=== PATIENT | female | born 1985 | race Hispanic/Latino ===

== ENCOUNTER 2016-08-11 12:53 | Emergency (ER) | payer OTHER ==
[~2016-08-11] VITALS: Ht 162.6 cm; Wt 65.8 kg
[~2016-08-11 12:53] MED LIST: AMOXICILLIN500 MG PO; DEPAKOTE500 MG PO; FERRALET 90 TA1 EACH PO; FLAGYL500 MG PO; HYDROXYZINE PAM50 MG PO; LOPERAMIDE2 M2 PO; OMEPRAZOLE20 M2 PO; PRENATAL1 TA2 PO; TYLENOL EXTRA500 M2 PO; ZOFRAN ODT4 M1 PO; ZOFRAN ODT4 MG PO; ZOFRAN4 M2 PO
--- NOTE | 2016-08-11 13:21 | ED GI/GU/ABDOMINAL COMPLAINT ---
History of Present Illness General Chief Complaint: Abdominal Pain/Flank Pain Stated Complaint: ABD PAIN/PRESSURE SINCE INTERCOURSE Source: patient, old records Exam Limitations: no limitations Vital Signs & Intake/Output Vital Signs & Intake/Output Vital Signs Date Time Temp Pulse Resp B/P B/P Pulse O2 O2 Flow FiO2 Mean Ox Delivery Rate 08/11 1510 97.8 66 18 156/99 100 08/11 1302 97.9 93 18 143/87 100 Room Air Allergies Coded Allergies: codeine (HIVES 07/21/15) Reconcile Medications Ibuprofen 600 MG TABLET 1 TAB PO Q6-PRN PRN PAIN (Reported) Ibuprofen 800 MG TABLET 1 TAB PO Q8H PRN pain Pantoprazole Sodium 40 MG TABLET.DR 1 TAB PO DAILY GI (Reported) Triage Note: PT TO ED FOR LATERAL ABD PAIN, PELVIC PAIN, ABD SKIN PAIN, RECTAL PAIN AND CONSTIPATION AND PAIN AFTER INTERCOURSE. PT ALSO C/O "CHRONIC EXCESSIVE GAS DUE TO MY SCIATICA". PT ALSO C/O DIFFICULTY EMPTYING HER BLADDER STATING "I HAVE TO RUB MY BELLY TO GET ALL THE URINE OUT" Triage Nurses Notes Reviewed? yes ? n Is pt currently ? No HPI: Patient is a 31-year-old female presents complaining of severe suprapubic, left sided pelvic pain, and left lower abdominal pain. Pain 3 days. Patient reports pain began while she was having vaginal intercourse and she felt that her bladder was full. Patient urinated after intercourse with mild improvement of symptoms but pain has persisted. Patient reports pain is a bubbling sensation with intermittent spasms that has been severe. Patient has been taking ibuprofen with mild improvement. Patient has difficulty urinating intermittently since she had a very complicated vaginal delivery childbirth approximately 10 months ago. Patient has to massage her back and her abdomen sometimes to help herself urinate. Patient reports that the vaginal intercourse was unprotected sex. Patient has been with her sexual partner for 5 years. Last menstrual period was 2 weeks ago. Patient denies vaginal bleeding or significant vaginal discharge. (SAIRA TORRES) Past History Travel History Traveled to [place] past 21 day No Medical History Any Pertinent Medical History? 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 MOTHER MOTHER (Mental illness). aunts and cousins (Cervical cancer and lupus). Hx Contributory? No (SAIRA TORRES) Review of Systems Review of Systems Constitutional: Denies: chills, fever. EENTM: Reports: no symptoms. Respiratory: Denies: cough, short of breath. Cardiovascular: Denies: chest pain. GI: Reports: abdominal pain, nausea. Denies: vomiting. Genitourinary: Reports: see HPI. Musculoskeletal: Reports: back pain. Skin: Reports: no symptoms. Neurological/Psychological: Reports: no symptoms. Hematologic/Endocrine: Reports: no symptoms. Immunologic/Allergic: Reports: no symptoms. (SAIRA TORRES) Physical Exam Physical Exam General Appearance: well developed/nourished, alert, awake, moderate distress Head: atraumatic, normal appearance Eyes: Bilateral: normal appearance, PERRL, EOMI. Ears, Nose, Throat, Mouth: hearing grossly normal, moist mucous membrane Neck: normal inspection, supple, full range of motion Respiratory: normal breath sounds, chest non-tender, no respiratory distress, lungs clear Cardiovascular: regular rate/rhythm Gastrointestinal: normal bowel sounds, soft, SUPRAPUBIC AND LEFT LOWER QUADRANT TENDERNESS Pelvic: Jalyn Triston MST present throughout exam. Small amount of white discharge from the cervical os. No cervical motion tenderness. No palpable lesions. Back: normal inspection, normal range of motion, NO CVA TENDERNESS Extremities: normal range of motion Neurologic/Psych: no motor/sensory deficits, awake, alert, oriented x 3 Skin: intact, normal color, warm/dry Core Measures ACS in differential dx? No Severe Sepsis Present: No Septic Shock Present: No (SAIRA TORRES) Progress Differential Diagnosis: AAA, bowel obstruction, diverticulitis, ectopic , endometritis, hernia, ischemic bowel, inflamm bowel dis, intrauterine , kidney stone, ovarian cyst, ovarian torsion, PID/cervicitis, SBO, UTI /pyelo, cauda equina, std Plan of Care: Orders Procedure Date/time Status TRICHOMONAS 08/12 1319 Complete POTASSIUM HYDROXIDE (PIERCE) 08/12 1319 Complete GENITAL CULTURE 08/12 1319 Active CHLAMYDIA-GC DNA PROBE 08/12 1319 Active URINE 08/12 1319 Complete URINALYSIS 08/12 1319 Complete COMPREHENSIVE METABOLIC PANEL 08/12 1319 Complete CBC WITHOUT DIFFERENTIAL 08/12 1319 Complete Laboratory Tests 08/11/16 1540: Urine Color YEL, Urine Clarity CLEAR, Urine pH 6.0, Ur Specific [place] 1.015, Urine Protein NEG, Urine Ketones NEG, Urine Nitrite NEG, Urine Bilirubin NEG, Urine Urobilinogen 0.2, Ur Leukocyte Esterase NEG, Ur Microscopic EXAM NOT REQUIRED, Urine Hemoglobin NEG, Urine Glucose NEG, Urine Test NEGATIVE 08/11/16 1406: Anion Gap 9, Estimated GFR > 60, BUN/Creatinine Ratio 17.1, Glucose 92, Calcium 9.1, Total Bilirubin 0.5, AST 17, ALT 37, Alkaline Phosphatase 62, Total Protein 6.7, Albumin 3.9, Globulin 2.8, Albumin/Globulin Ratio 1.4, CBC w Diff NO MAN DIFF REQ, RBC 4.44, MCV 89.9, MCH 30.3, RDW 12.8, MPV 8.8, Gran % 70.2, Lymphocytes % 21.7, Monocytes % 6.0, Eosinophils % 1.8, Basophils % 0.3, Absolute Granulocytes 6.0, Absolute Lymphocytes 1.8, Absolute Monocytes 0.5, Absolute Eosinophils 0.2, Absolute Basophils 0, PUBS MCHC 33.8 Microbiology 08/11 1400 GENITAL: GC DNA Probe - RECD 08/11 1400 GENITAL: Chlamydia DNA Probe (SANDRITA) - RECD 08/11 1400 GENITAL: PIERCE Preparation - COMP 08/11 1400 GENITAL: Trichomonas Preparation - COMP 08/11 1400 GENITAL: Genital Culture - RECD 08/11/2016 4:10:36 PM: Results of labs and ultrasound was discussed with patient. Patient reports significant improvement in her pain after IV Toradol. Encouraged patient to follow up with her primary care doctor and her workers compensation claims adjuster. Patient also provided with information for urology follow-up regarding her difficulty with urinating for several months. (HEPERNELLBRUNN PA,SAIRA) Diagnostic Imaging: Viewed by Me: Ultrasound. Discussed w/RAD: Ultrasound. Radiology Impression: PATIENT: FADUMO CROWELL PRESENT AGE: 31 PATIENT ACCOUNT NO: [id number] : 84 LOCATION: [facility] ORDERING PHYSICIAN: SAIRA BARKER SERVICE DATE: 08/11/16 EXAM TYPE: US - US-RENAL/KIDNEY; US-TRANSVAGINAL EXAMINATION: RENAL AND PELVIC ULTRASOUND CLINICAL INFORMATION: Left-sided pelvic and flank pain. COMPARISON: None. RENAL: TECHNIQUE: Routine grayscale and color Doppler imaging through the retroperitoneum is provided for interpretation. Limited waveform analysis is also provided. Selected static images are provided for interpretation. FINDINGS: The kidneys are normal in size and echotexture with the right kidney measuring 12.1 and the left kidney measuring 11.3 cm in maximal dimensions. There is no evidence of hydronephrosis or nephrolithiasis identified. There is no evidence of intraperitoneal free fluid identified. The urinary bladder contains a moderate amount of fluid. Bilateral ureteral jets are not visualized, however. PELVIS: TECHNIQUE: Transabdominal followed by transvaginal imaging was performed. Doppler interrogation and spectral analysis was performed. FINDINGS: The uterus is of normal size and echogenicity measuring 8.4 x 4.1 x 5.6 cm. A homogeneous endometrium is identified measuring 1.0 cm. The cervical length is 2.6 cm. There are small debris-filled nabothian cysts. There is a complex lesion identified in the left ovary measuring 2.6 x 2.5 x 2.2 cm, for which interval followup in 2-3 months is recommended. Both ovaries are of otherwise normal size and vascularity and echogenicity. The right measures 3.0 x 2.6 x 3.0 cm for a volume of 12.5 cc. The left measures 3.8 x 3.1 x 3.0 cm for a volume of 19 cc. There is no free fluid in the cul-de-sac. IMPRESSION: 1. Unremarkable renal ultrasound. 2. Complex mass left ovary, possibly a complex cyst. This is highly unlikely to represent an ectopic , however, this diagnosis is not entirely excluded. Clinical and laboratory correlation recommended. Follow-up imaging in 2-3 months is also recommended. DICTATED BY: SHANA MCBRIDE MD DATE /TIME DICTATED:08/11/161510 LABORATORY SUPERVISOR:KILEY DATE/TIME TRANSCRIBED: 08/11/161510 CONFIDENTIAL, DO NOT COPY WITHOUT APPROPRIATE AUTHORIZATION. < Electronically signed in Other Vendor System> SIGNED BY: SHANA MCBRIDE MD 08/11/16 1548 Initial ED EKG: none (SAIRA TORRES) Departure Departure Time of Disposition: 1557 Disposition: HOME OR SELF CARE Condition: Stable Clinical Impression Primary Impression: Ovarian cyst Qualifiers: Laterality: left Qualified Code: N83.202 - Unspecified ovarian cyst , left side Referrals: ESTELA CRAWFORD,JEET LAW DO,CHICO RODRIGUEZ MD,YONAS (PCP/Family) Additional Instructions: Follow-up with your primary doctor and your workers compensation claims adjuster for further evaluation of your symptoms. Call this afternoon or tomorrow morning for appointment. Also follow-up with Dr. Mcrae(urologist) or your workers compensation claims adjuster for further evaluation of your difficulty urinating. Return to the ER if fevers, pain is uncontrollable or worsening of symptoms. Departure Forms: Customer Survey General Discharge Information Prescriptions: Current Visit Scripts Ibuprofen 1 TAB PO Q8H PRN pain #30 TAB (SAIRA TORRES) PA/MACHINE FELLER Co-Sign Statement Statement: ED Attending supervision documentation- [] I saw and evaluated the patient. I have also reviewed all the pertinent lab results and diagnostic results. I agree with the findings and the plan of care as documented in the PA's/MACHINE FELLER's documentation. [x] I have reviewed the ED Record and agree with the PA's/MACHINE FELLER's documentation. [] Additions or exceptions (if any) to the PAs/MACHINE FELLER's note and plan are summarized below: [] (HARRISON MAZARIEGOS DO
[2016-08-11 14:15] LABS: ABSOLUTE BASOPHIL COUNT 0 /CUMM (0.0-0.2); ABSOLUTE EOSINOPHIL COUNT 0.2 /CUMM (0.0-0.7); ABSOLUTE LYMPH COUNT 1.8 /CUMM (1.2-3.4); ABSOLUTE MONOCYTE COUNT 0.5 /CUMM (0.10-0.60); BASOPHIL % 0.3 % (0.0-2.0); EOSINOPHIL % 1.8 % (0-5); GRANULOCYTE % 70.2 % (42.2-75.2); HEMATOCRIT 39.9 % (37-47); MEAN CORPUSCULAR HGB 30.3 PG (27.0-31.0); MEAN CORPUSCULAR HGB CONC 33.8 G/DL (33.0-37.0); MEAN CORPUSCULAR VOLUME 89.9 FL (81.0-99.0); MEAN PLATELET VOLUME 8.8 FL (7.4-10.4); PLATELET COUNT 219 /CUMM (130-400); RBC DISTRIBUTION WIDTH 12.8 % (11.5-14.5); RED BLOOD CELL CT 4.44 /CUMM (4.20-5.40); WHITE BLOOD CELL COUNT 8.5 /CUMM (4.8-10.8)
[2016-08-11 15:10] VITALS: BP 156/99
[2016-08-11] MEDS ORDERED: IBUPROFEN600 M1 PO (15:27)
[2016-08-11] MEDS ORDERED: PANTOPRAZOLE SO40 M1 PO (15:27)
--- NOTE | 2016-08-11 15:48 | ULTRASOUND REPORT ---
EXAMINATION: RENAL AND PELVIC ULTRASOUND CLINICAL INFORMATION: Left-sided pelvic and flank pain. COMPARISON: None. RENAL: TECHNIQUE: Routine grayscale and color Doppler imaging through the retroperitoneum is provided for interpretation. Limited waveform analysis is also provided. Selected static images are provided for interpretation. FINDINGS: The kidneys are normal in size and echotexture with the right kidney measuring 12.1 and the left kidney measuring 11.3 cm in maximal dimensions. There is no evidence of hydronephrosis or nephrolithiasis identified. There is no evidence of intraperitoneal free fluid identified. The urinary bladder contains a moderate amount of fluid. Bilateral ureteral jets are not visualized, however. PELVIS: TECHNIQUE: Transabdominal followed by transvaginal imaging was performed. Doppler interrogation and spectral analysis was performed. FINDINGS: The uterus is of normal size and echogenicity measuring 8.4 x 4.1 x 5.6 cm. A homogeneous endometrium is identified measuring 1.0 cm. The cervical length is 2.6 cm. There are small debris-filled nabothian cysts. There is a complex lesion identified in the left ovary measuring 2.6 x 2.5 x 2.2 cm, for which interval followup in 2-3 months is recommended. Both ovaries are of otherwise normal size and vascularity and echogenicity. The right measures 3.0 x 2.6 x 3.0 cm for a volume of 12.5 cc. The left measures 3.8 x 3.1 x 3.0 cm for a volume of 19 cc. There is no free fluid in the cul-de-sac. IMPRESSION: 1. Unremarkable renal ultrasound. 2. Complex mass left ovary, possibly a complex cyst. This is highly unlikely to represent an ectopic , however, this diagnosis is not entirely excluded. Clinical and laboratory correlation recommended. Follow-up imaging in 2-3 months is also recommended.
[2016-08-11] MEDS ORDERED: IBUPROFEN800 M1 PO (16:01)
== END 2016-08-11 16:10 ==
LOC: ERH 12:53
PROVIDERS: Physician Assistant
DX: N83.202 Unspecified ovarian cyst, left side (principal)
CPT/HCPCS: 87070; 76775; 81003; 81025; 87491; 87591; 96374; J1885

== ENCOUNTER 2016-09-15 23:14 | Emergency (ER) | payer OTHER ==
[~2016-09-15] VITALS: Ht 162.6 cm; Wt 68.0 kg
[~2016-09-15 23:14] MED LIST changes: +IBUPROFEN600 M1 PO; +IBUPROFEN800 M1 PO; +PANTOPRAZOLE SO40 M1 PO
[2016-09-15 23:22] VITALS: BP 152/94
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
[2016-09-16] MEDS ORDERED: ONDANSETRON ODT8 M1 PO (00:25)
[2016-09-16] MEDS ORDERED: CRYSELLE-28 TA1 EACH PO (00:26)
[2016-09-16] MEDS ORDERED: CYCLOBENZAPRINE10 M1 PO (01:12)
[2016-09-16] MEDS ORDERED: IBUPROFEN600 M1 PO (01:12)
== END 2016-09-16 01:22 ==
LOC: ERH 23:14
DX: S39.012A Strain of muscle, fascia and tendon of lower back, initial encounter (principal); S76.012A Strain of muscle, fascia and tendon of left hip, initial encounter; V49.50XA Passenger injured in collision with unspecified motor vehicles in traffic accident, initial encounter; Y92.9 Unspecified place or not applicable
CPT/HCPCS: 72080

== ENCOUNTER 2017-11-29 23:21 | Emergency (ER) | payer OTHER ==
[~2017-11-29 23:21] MED LIST changes: +ALA-CORT30 GM TOP; +AMOX-CLAV 875-1 EACH PO; +CRYSELLE-28 TA1 EACH PO; +CYCLOBENZAPRINE10 M1 PO; +FLONASE ALLERG9.9 ML NAS; +HYDROXYZINE PAM50 M1 PO; +NORCO 5-325 TA1 EACH PO; +OMEPRAZOLE40 M1 PO; +ONDANSETRON ODT8 M1 PO
[2017-11-29 23:52] VITALS: BP 160/85
--- NOTE | 2017-11-30 00:17 | ED HEAD/FACIAL INJ COMPLAINT ---
History of Present Illness General Chief Complaint: Dizziness Stated Complaint: PT C/O HEAD PAIN S/P HITTING ON CAR DOOR Source: patient Exam Limitations: no limitations Vital Signs & Intake/Output Vital Signs & Intake/Output Vital Signs Date Time Temp Pulse Resp B/P B/P Pulse O2 O2 Flow FiO2 Mean Ox Delivery Rate 11/29 2352 96.5 83 18 160/85 100 ED Intake and Output 11/30 0000 11/29 1200 Intake Total Output Total Balance Patient 0 lb Weight Allergies Coded Allergies: Iodinated Contrast- Oral and IV Dye (Intermediate, RASH AND WARMTH, FACIAL SWELLING 11/29/17) codeine (HIVES 11/29/17) Reconcile Medications Amoxicillin/Clavulanate Potass (Amox-Clav 875-125 MG Tablet) 875 MG-125 MG TABLET 1 TAB PO BID ANTIBIOTIC (Reported) Fluticasone Propionate (Flonase Allergy Relief) 50 MCG/ACTUATION SPRAY.SUSP 2 SPRAY ERIN ONCE DAILY PRN CONGESTION Hydroxyzine Pamoate 50 MG CAPSULE 1 CAP PO QPM SLEEP/ANXIETY (Reported) Ibuprofen 800 MG TABLET 1 TAB PO PRN PAIN (Reported) Ibuprofen 800 MG TABLET 1 TAB PO TID PRN PAIN Omeprazole 40 MG CAPSULE.DR 1 CAP PO DAILY GI (Reported) Triage Note: TRIAGE: PATIENT TO ER FROM HOME REPORTING "KNOCKED MYSELF OUT MONDAY NIGHT, LACK A LOT OF SLEEP, POINT OF CAR DOOR HIT MY L SIDE FACE. THROBBING IN HEAD, +DIZZINESS. HIT R SIDE AND R ARM AND ALREADY HAVE SCIATIC ISSUES." PATIENT REPORTS "ALSO HIT MYSELF SO HARD THAT I GAVE MYSELF MY PERIOD A WEEK EARLY." REPORTS INTERMITTENT NAUSEA AND DIZZINESS. 7:30PM TONIGHT INCREASED PAIN TO TOP OF HEAD AND CONGREGATIONAL. Triage Nurses Notes Reviewed? yes Onset: PAST 2 DAYS Severity: moderate : No Patient currently breastfeeds: No HPI: I was getting into a car and accidentally hit myself with the tank driver's car door onto my left cheek I was seeing stars and I almost fell to the ground. Since then I stayed at home and in bed hardly doing much and my urine has been yellow. Today he had been feeling dizzy and my left side of the face which was quite swollen was getting better and is still is but I am here to be checked to make sure I did not have a concussion. Past History Travel History Traveled to [place] past 21 day No Medical History Any Pertinent Medical History? 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 MOTHER MOTHER (Mental illness). aunts and cousins (Cervical cancer and lupus). Hx Contributory? No Review of Systems Review of Systems Constitutional: Reports: see HPI. EENTM: Reports: see HPI. All Other Systems: Reviewed and Negative Physical Exam Physical Exam General Appearance: well developed/nourished, no apparent distress, alert Head: atraumatic, normal appearance Eyes: Bilateral: normal appearance. Ears, Nose, Throat: normal pharynx, normal ENT inspection Neck: normal inspection, supple, full range of motion Respiratory: normal breath sounds, chest non-tender, no respiratory distress Cardiovascular: regular rate/rhythm Cranial Nerves: normal hearing, normal speech Motor/Sensory: no motor/sensory deficits, motor deficit Skin: intact, normal color, warm/dry Progress Differential Diagnosis: CONTUSION Plan of Care: Orders Procedure Date/time Status Saline Lock 11/30 10 Active URINE DRUG SCREEN FOR ER ONLY 11/30 10 Complete URINALYSIS 11/30 10 Complete PHOSPHORUS 11/30 10 Complete MAGNESIUM 11/30 10 Complete COMPREHENSIVE METABOLIC PANEL 11/30 10 Complete CBC WITHOUT DIFFERENTIAL 11/30 10 Complete EKG 11/29 2355 Active URINE 11/29 2330 Complete Laboratory Tests 11/30/17 0025: Anion Gap 9, Estimated GFR > 60, BUN/Creatinine Ratio 25.0, Glucose 86, Calcium 9.1, Phosphorus 3.8, Magnesium 2.0, Total Bilirubin 0.8, AST 17, ALT 22, Alkaline Phosphatase 55, Total Protein 7.0, Albumin 4.1, Globulin 2.9, Albumin/ Globulin Ratio 1.4, CBC w Diff NO MAN DIFF REQ, RBC 4.23, MCV 89.9, MCH 30.5, MCHC 34.0, RDW 12.9, MPV 9.0, Gran % 60.4, Lymphocytes % 32.2, Monocytes % 6.1, Eosinophils % 0.9, Basophils % 0.4, Absolute Granulocytes 4.4, Absolute Lymphocytes 2.3, Absolute Monocytes 0.4, Absolute Eosinophils 0.1, Absolute Basophils 0 11/30/17 0020: Urine Test NEGATIVE 11/30/17 0020: Urine Opiates Screen < 100, Methadone Screen < 40, Barbiturate Screen < 60, Ur Phencyclidine Scrn < 6.00, Amphetamines Screen < 100, U Benzodiazepines Scrn < 85, Urine Cocaine Screen < 50, Urine Cannabis Screen > 80.00 H, Urine Color YEL , Urine Clarity CLEAR, Urine pH 6.5, Ur Specific [place] 1.015, Urine Protein NEG, Urine Ketones NEG, Urine Nitrite NEG, Urine Bilirubin NEG, Urine Urobilinogen 0.2, Ur Leukocyte Esterase NEG, Ur Microscopic SEDIMENT EXAMINED, Urine RBC 5-10 H, Ur Epithelial Cells RARE, Urine Bacteria FEW H, Urine Hemoglobin MOD H, Urine Glucose NEG Initial ED EKG: normal axis, none, normal intervals, normal p-waves, NSR Prior EKG: unchanged (NO PRIOR) Departure Departure Disposition: HOME OR SELF CARE Condition: Stable Clinical Impression Primary Impression: Contusion Secondary Impressions: Dizziness Referrals: Maricarmen Barbosa DO (PCP/Family) Departure Forms: Customer Survey General Discharge Information ED Attending Observation Initial Observation Note: I have seen and personally examined [email or web address] on 11/30/17 at 0019. I agree with the current emergency department documentation. The disposition (admission or discharge) is uncertain at this time, she needs a period of observation for the following reason(s): The ED Nurse caring for this patient has been personally informed as to what the patient is being observed for.
[2017-11-30 00:39] LABS: ABSOLUTE BASOPHIL COUNT 0 /CUMM (0.0-0.2); ABSOLUTE EOSINOPHIL COUNT 0.1 /CUMM (0.0-0.7); ABSOLUTE GRANULOCYTE CT 4.4 /CUMM (1.4-6.5); ABSOLUTE LYMPH COUNT 2.3 /CUMM (1.2-3.4); ABSOLUTE MONOCYTE COUNT 0.4 /CUMM (0.10-0.60); BASOPHIL % 0.4 % (0.0-2.0); EOSINOPHIL % 0.9 % (0-5); GRANULOCYTE % 60.4 % (42.2-75.2); MEAN CORPUSCULAR HGB 30.5 PG (27.0-31.0); MEAN CORPUSCULAR VOLUME 89.9 FL (81.0-99.0); PLATELET COUNT 262 /CUMM (130-400); RBC DISTRIBUTION WIDTH 12.9 % (11.5-14.5); RED BLOOD CELL CT 4.23 /CUMM (4.20-5.40); WHITE BLOOD CELL COUNT 7.2 /CUMM (4.8-10.8)
== END 2017-11-30 03:18 ==
LOC: ERH 23:21
PROVIDERS: Emergency Medicine
DX: S00.83XA Contusion of other part of head, initial encounter (principal); F17.210 Nicotine dependence, cigarettes, uncomplicated; R42 Dizziness and giddiness; W22.8XXA Striking against or struck by other objects, initial encounter; Y92.9 Unspecified place or not applicable; Y93.9 Activity, unspecified
CPT/HCPCS: 80307; 81001; 81025; 93005; 93010; 96361; 96374; J1885